=== PATIENT | male | born 1990 | race Caucasian/White ===

== ENCOUNTER 2021-08-12 08:17 | Emergency (ER) | payer OTHER ==
[2021-08-12 08:39] VITALS: BP 128/95
[2021-08-12 08:39] LABS: BASOPHILS % (AUTO) 0.3 %; EOSINOPHILS # (AUTO) 0.1 10^3/uL (0.0-0.7); EOSINOPHILS % (AUTO) 1.2 %; HCT - HEMATOCRIT 46.8 % (42.0-52.0); HGB - HEMOGLOBIN 15.6 g/dL (14.0-18.0); LYMPHOCYTES # (AUTO) 2.1 10^3/uL (1.5-3.5); LYMPHOCYTES % (AUTO) 36.6 %; MEAN CORPUSCULAR HEMOGLOBIN 30.4 pg (27.0-31.0); MEAN CORPUSCULAR HGB CONC 33.3 g/dL (32.0-36.0); MEAN CORPUSCULAR VOLUME 91.1 fL (80.0-94.0); MEAN PLATELET VOLUME 9.1 fL (7.4-11.4); MONOCYTES # (AUTO) 0.5 10^3/uL (0.0-1.0); MONOCYTES % (AUTO) 9.3 %; NEUTROPHILS % (AUTO) 52.4 %; PLT - PLATELET COUNT 197 10^3/uL (130-450); RED BLOOD COUNT 5.14 10^6/uL (4.70-6.10); WHITE BLOOD COUNT 5.8 x10^3/uL (4.8-10.8)
[2021-08-12 08:53] LABS: ALBUMIN 4.8 g/dL (3.2-5.5); ALBUMIN/GLOBULIN RATIO 1.8 (1.0-2.2); BILIRUBIN,TOTAL 1.3 mg/dL (0.2-1.0); CALCIUM 9.4 mg/dL (8.5-10.3); CREATININE 1.1 mg/dL (0.6-1.2); POTASSIUM 3.8 mmol/L (3.5-5.0); TOTAL PROTEIN 7.5 g/dL (6.7-8.2)
--- NOTE | 2021-08-12 09:05 | ED Physician Documentation ---
PD HPI SYNCOPE - Stated complaint Stated Complaint: Syncopal - Chief complaint Chief Complaint: Neuro - History obtained from History obtained from: Patient, EMS - History of Present Illness Witnessed: Witnessed (from sitting position, fell backward with fainting.) Timing - onset: How many minutes ago (30), Today Duration: Seconds Preceding symptoms: Light headed (He states he was feeling fine this morning and got into work. Had a sip of coffee to drink and felt like it "went down the wrong hole" with a pressure in his throat. No choking per se. He then felt lightheaded and was witnessed to pass out backward to the floor. Awoke in a few seconds. Okay now.). No: Headache, Vision changes, Abdominal pain, Generalized weakness Associated symptoms: No: Seizure, Headache, Chest pain, Nausea / vomiting, Abdominal pain Contributing factors: Noxious stimulae (felt like fluid he drank "went down wrong pipe" for a moment.). No: Recent med change, Decreased PO intake Injury occurred: Head injury (he states he has mild headache after the event f rom hitting floor from sitting.) Similar symptoms before: Has not had sx before, Other (He states he has been feeling well recently without any change in diet. No nausea or vomiting. No viral symptoms. Usual working out without any exertional symptoms.) Review of Systems Constitutional: denies: Fever, Chills Eyes: denies: Loss of vision Nose: denies: Rhinorrhea / runny nose, Congestion Throat: denies: Sore throat Cardiac: denies: Chest pain / pressure Respiratory: denies: Dyspnea, Cough GI: denies: Abdominal Pain, Vomiting, Diarrhea, Bloody / black stool : denies: Dysuria Skin: denies: Abrasion (s), Laceration (s) Musculoskeletal: denies: Neck pain, Back pain Neurologic: denies: Focal weakness, Numbness, Altered mental status Endocrine: denies: Weight loss PD PAST MEDICAL HISTORY - Past Medical History Past Medical History: Yes Cardiovascular: None Respiratory: None Neuro: None Endocrine/Autoimmune: None GI: None : None HEENT: None Psych: None Musculoskeletal: None Derm: None - Past Surgical History Past Surgical History: Yes Ortho: Arthroscopic surgery - Present Medications Home Medications: Ambulatory Orders Medication Instructions Recorded Confirmed No Known Home Medications 08/12/21 08/12/21 - Allergies Allergies/Adverse Reactions: Allergies Allergy/AdvReac Type Severity Reaction Status Date / Time No Known Drug Allergies Allergy Verified 08/12/21 08:26 - Social History Does the pt smoke?: No Smoking Status: Never smoker Does the pt drink ETOH?: Yes Does the pt have substance abuse?: No - Immunizations Immunizations are current?: Yes PD ED PE NORMAL - Vitals Vital signs reviewed: Yes - General General: Alert and oriented X 3, No acute distress, Well developed/nourished - HEENT HEENT: PERRL, EOMI, Pharynx benign, Other (minimal tenderness occiput. No swelling. ) - Neck Neck: Supple, no meningeal sign, No bony TTP, No adenopathy - Cardiac Cardiac: RRR, No murmur - Respiratory Respiratory: Clear bilaterally - Abdomen Abdomen: Soft, Non tender - Back Back: No spinal TTP - Derm Derm: Normal color, Warm and dry - Extremities Extremities: No tenderness to palpate, Normal ROM s pain - Neuro Neuro: Alert and oriented X 3, radiotelegraphist 2-12 intact, No motor deficit, No sensory deficit, Normal speech Eye Opening: Spontaneous Motor: Obeys Commands Verbal: Oriented GCS Score: 15 Results - Vitals Vitals: Vital Signs - 24 hr 08/12/21 08/12/21 08:27 08:37 Temperature 35.9 C L Heart Rate 55 L 58 L Respiratory 14 20 Rate Blood Pressure 134/89 H 128/95 H O2 Saturation 100 99 Oxygen O2 Source Room air - EKG (time done) 08:18 Rate: Rate (enter#) (58) Rhythm: NSR [place]: Normal Intervals: Normal DC QRS: Normal Ischemia: Normal ST segments, ST elevation c/w repol (mild anterior). No: ST elevation c/w ischemia, ST depression - Labs Labs: Laboratory Tests 08/12/21 08/12/21 08:34 08:34 WBC 5.8 RBC 5.14 Hgb 15.6 Hct 46.8 MCV 91.1 MCH 30.4 MCHC 33.3 RDW 12.0 Plt Count 197 MPV 9.1 Neut # (Auto) 3.0 Lymph # (Auto) 2.1 [place] # (Auto) 0.5 Eos # (Auto) 0.1 Baso # (Auto) 0.0 Absolute Nucleated RBC 0.00 Nucleated RBC % 0.0 Sodium 139 Potassium 3.8 Chloride 102 Carbon Dioxide 28 Anion Gap 9.0 BUN 19 Creatinine 1.1 Estimated GFR (MDRD) 78 L Glucose 100 Calcium 9.4 Total Bilirubin 1.3 H AST 24 ALT 37 Alkaline Phosphatase 48 Total Protein 7.5 Albumin 4.8 Globulin 2.7 Albumin/Globulin Ratio 1.8 Lipase 43 PD MEDICAL DECISION MAKING - ED course Complexity details: reviewed results, re-evaluated patient (still feeling okay here. ), considered differential, d/w patient Departure - Departure Disposition: 01 Home, Self Care Clinical Impression: Syncope Qualifiers: Syncope type: vasovagal syncope Qualified Code(s): R55 - Syncope and collapse Condition: Stable Record reviewed to determine appropriate education?: Yes Instructions: ED Syncope Vasovagal Follow-Up: RUFINO Kearns [Provider Group] Comments: Your EKG, heart rhythm, vital signs and basic blood count and chemistry panel are normal. This sounds likely to have been a vasovagal episode of just a brief drop in blood pressure leading to the fainting episode. Continue normal hydration and diet intake and activity. Recheck if recurrent episodes. Discharge Date/Time: 08/12/21 09:12
== END 2021-08-12 09:12 | disposition home or self-care (01) ==
LOC: EDBD → ED 08:17
DX: R55 Syncope and collapse (principal)
CPT/HCPCS: 36415; 80053; 83690; 85025; 93005; 99284